=== PATIENT | female | born 1950 | race Hispanic/Latino ===

== ENCOUNTER 2018-03-24 01:55 | Emergency (ER) | payer MEDICARE ==
[~2018-03-24] VITALS: Ht 152.4 cm; Wt 81.6 kg
[2018-03-24] MEDS ORDERED: DIPHTH/TETANUS/ACEL. PERTUSSIS 0.5 ML SYR IM ONE (02:15)
[2018-03-24] MEDS ORDERED: AUGMENTIN 875-1 EACH PO (02:37)
[2018-03-24] MEDS ORDERED: MUPIROCIN22 GM TOP (02:37)
== END 2018-03-24 02:50 | disposition home or self-care (01) ==
LOC: FSED 01:55
DX: S91.311A Laceration without foreign body, right foot, initial encounter (principal); W26.8XXA Contact with other sharp object(s), not elsewhere classified, initial encounter; Y92.008 Other place in unspecified non-institutional (private) residence as the place of occurrence of the external cause; E11.9 Type 2 diabetes mellitus without complications; I10 Essential (primary) hypertension; E78.5 Hyperlipidemia, unspecified
CPT/HCPCS: 99283

== ENCOUNTER 2021-12-14 11:32 | Emergency (ER) | payer MEDICARE ==
[~2021-12-14] VITALS: Ht 149.9 cm; Wt 82.6 kg
[~2021-12-14 11:32] MED LIST: AUGMENTIN 875-1 EACH PO; MUPIROCIN22 GM TOP
[2021-12-14 14:39] VITALS: BP 142/83
== END 2021-12-14 14:39 | disposition home or self-care (01) ==
LOC: FSED 12:08
DX: S40.012A Contusion of left shoulder, initial encounter (principal); S80.02XA Contusion of left knee, initial encounter; R42 Dizziness and giddiness; W18.39XA Other fall on same level, initial encounter; Y92.098 Other place in other non-institutional residence as the place of occurrence of the external cause; E11.65 Type 2 diabetes mellitus with hyperglycemia; I10 Essential (primary) hypertension; E78.5 Hyperlipidemia, unspecified
CPT/HCPCS: 80053; 81003; 82553; 84484; 85025; 99283

== ENCOUNTER 2021-12-28 08:05 | Emergency (ER) | payer MEDICARE ==
[~2021-12-28] VITALS: Ht 149.9 cm; Wt 83.0 kg
== END 2021-12-28 09:25 | disposition home or self-care (01) ==
LOC: FSED 08:11
DX: U07.1 COVID-19 (principal); R05.9 Cough, unspecified; E11.649 Type 2 diabetes mellitus with hypoglycemia without coma; I10 Essential (primary) hypertension; E78.5 Hyperlipidemia, unspecified
CPT/HCPCS: 99282